=== PATIENT | male | born 1970 | race African-American/Black ===

== ENCOUNTER 2017-10-23 13:43 | Emergency (ER) | payer OTHER ==
[2017-10-23 13:53] VITALS: BP 111/66
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
== END 2017-10-23 15:10 | disposition home or self-care (01) ==
LOC: ER 13:43
DX: S16.1XXA Strain of muscle, fascia and tendon at neck level, initial encounter (principal); M54.6 Pain in thoracic spine; M79.661 Pain in right lower leg; V89.2XXA Person injured in unspecified motor-vehicle accident, traffic, initial encounter
CPT/HCPCS: 99283